=== PATIENT | male | born 1990 | race African-American/Black ===

== ENCOUNTER 2017-06-28 22:55 | Emergency (ER) | payer BC ==
[2017-06-28 23:15] VITALS: BP 147/94
[2017-06-28] MEDS ORDERED: LIDOCAINE 1% / SOD BICARB 8.4% 20 ML VIAL. IJ ONE (23:55)
--- NOTE | 2017-06-29 00:27 | PHYS DOC ---
Past Medical History Past Medical History: Asthma, Hypertension Past Surgical History: No Surgical History Alcohol Use: None Drug Use: None Adult General Chief Complaint Chief Complaint: LACERATION/AVULSION HPI HPI Patient is a 27 year old male who presents with right cheek laceration. Patient states he was mowing his lawn when a piece of nail flew and cut him on the right cheek. Patient states his tetanus is up-to-date Review of Systems Review of Systems Constitutional: Denies fever or chills [] Eyes: Denies change in visual acuity, redness, or eye pain [] HENT: Denies nasal congestion or sore throat [] Respiratory: Denies cough or shortness of breath [] Cardiovascular: No additional information not addressed in HPI [] GI: Denies abdominal pain, nausea, vomiting, bloody stools or diarrhea [] : Denies dysuria or hematuria [] Musculoskeletal: Denies back pain or joint pain [] Integument: right cheek laceration Neurologic: Denies headache, focal weakness or sensory changes [] Endocrine: Denies polyuria or polydipsia [] Current Medications Current Medications Current Medications Medications (Trade) Dose Ordered Sig/Dae Start Time Stop Time Status Last Admin Dose Admin Lidocaine/Sodium Bicarbonate (Buffered Lidocaine 1%) 20 ml 1X ONCE 06/28/17 23:55 06/28/17 23:56 DC 06/28/17 23:55 20 ML Allergies Allergies Allergies Coded Allergies Type Severity Reaction Last Updated Verified No Known Drug Allergies 06/28/17 No Physical Exam Physical Exam Constitutional: Well developed, well nourished, no acute distress, non-toxic appearance. [] HENT: Normocephalic, atraumatic, bilateral external ears normal, oropharynx moist, no oral exudates, nose normal. [] Eyes: PERRLA, EOMI, conjunctiva normal, no discharge. [] Neck: Normal range of motion, no tenderness, supple, no stridor. [] Cardiovascular:Heart rate regular rhythm, no murmur [] Lungs & Thorax: Bilateral breath sounds clear to auscultation [] Abdomen: Bowel sounds normal, soft, no tenderness, no masses, no pulsatile masses. [] Skin: Right cheek with a laceration approximately 2 cm long. Laceration is not cutting through. Back: No tenderness, no CVA tenderness. [] Extremities: No tenderness, no cyanosis, no clubbing, ROM intact, no edema. [] Neurologic: Alert and oriented X 3, normal motor function, normal sensory function, no focal deficits noted. [] Psychologic: Affect normal, judgement normal, mood normal. [] Current Patient Data Vital Signs Vital Signs Date Time Temp Pulse Resp B/P (MAP) Pulse Ox O2 Delivery O2 Flow Rate FiO2 06/28/17 23:15 97.9 78 17 98 Room Air 97.9 EKG EKG [] Radiology/Procedures Radiology/Procedures Indication: Right cheek laceration Procedure: The patient was placed in the appropriate position and anesthesia around the laceration was 1% buffered lidocaine, the laceration was explored for foreign objects, none was found. The laceration was cleaned with 20 ml of normal saline and Betadine. The laceration was closed with 5 interrupted sutures using 6. 0 Prolene and left open to air. Course & Med Decision Making Course & Med Decision Making Pertinent Labs and Imaging studies reviewed. (See chart for details) Patient has right cheek laceration that was closed as noted in procedures. Provided wound care instructions as well as return precautions. Follow-up with the ED in 5 days for suture removal. Tetanus is up to date Dragon Disclaimer Dragon Disclaimer This electronic medical record was generated, in whole or in part, using a voice recognition dictation system. Departure Departure Impression: Primary Impression: Cheek laceration Disposition: 01 HOME, SELF-CARE Condition: STABLE Referrals: NO PCP (PCP) Follow-up with the ED with the primary care doctor in 5 days. Suture removal Patient Instructions: Facial Laceration Additional Instructions: You were seen with a laceration on the right cheek. Keep the area clean and dry. Apply Neosporin to the area twice a day. Monitor it for signs and symptoms of infection including but not limited to increased redness warmth or odorous/ yellow drainage from the area return to the ED if they occur. Follow-up with the PCP or the emergency room in 5 days for suture removal Problem Qualifiers Primary Impression: Cheek laceration Encounter type: initial encounter Laterality: right Qualified Codes: S01.411A - Laceration without foreign body of right cheek and temporomandibular area, initial encounter JOVITA WHITE APRN Jun 29, 2017 00:27
== END 2017-06-29 00:57 | disposition home or self-care (01) ==
LOC: ER 22:55
DX: S01.411A Laceration without foreign body of right cheek and temporomandibular area, initial encounter (principal); I10 Essential (primary) hypertension; J45.909 Unspecified asthma, uncomplicated; W26.8XXA Contact with other sharp object(s), not elsewhere classified, initial encounter; Y93.89 Activity, other specified; Y92.89 Other specified places as the place of occurrence of the external cause; Y99.8 Other external cause status
CPT/HCPCS: 12011; 99283-25

== ENCOUNTER 2017-07-06 10:13 | Emergency (ER) | payer BC ==
[~2017-07-06] VITALS: Ht 177.8 cm; Wt 90.7 kg
[2017-07-06 10:30] VITALS: BP 150/95
--- NOTE | 2017-07-06 10:53 | PHYS DOC ---
Past Medical History Past Medical History: Asthma, Hypertension Past Surgical History: No Surgical History Alcohol Use: None Drug Use: None Adult General Chief Complaint Chief Complaint: SUTURE/STAPLE REMOVAL HPI HPI Patient is a pleasant 27-year-old male who sustained a laceration to the right cheek 7 days ago. He was mowing the lawn when he struck in the face by a nail came out of the mower. He had the wound cleaned and dressed and it closed here in our emergency department with polypropylene. Review of Systems Review of Systems Constitutional: Denies fever or chills [][] Integument: Denies rash or skin lesions [] Neurologic: Denies headache, Allergies Allergies Allergies Coded Allergies Type Severity Reaction Last Updated Verified No Known Drug Allergies 06/28/17 No Physical Exam Physical Exam Vital signs reviewed. Constitutional: Well developed, well nourished, no acute distress, non-toxic appearance. [] Skin: Warm, dry, no erythema, no rash. Impression's has a well-healed small 1.5 summary laceration to the right cheek. [address] Neurologic: Alert and oriented X 3, Psychologic: Affect normal, judgement normal, mood normal. [] EKG EKG [] Radiology/Procedures Radiology/Procedures [] Course & Med Decision Making Course & Med Decision Making Pertinent Labs and Imaging studies reviewed. (See chart for details) 5. 0 Prolene sutures removed without issue. Patient given wound precautions and will follow-up with his private doctor. [] Dragon Disclaimer Dragon Disclaimer This electronic medical record was generated, in whole or in part, using a voice recognition dictation system. Departure Departure Impression: Primary Impression: Cheek laceration Additional Impression: Visit for suture removal Disposition: 01 HOME, SELF-CARE Condition: IMPROVED Referrals: NO PCP (PCP) Patient Instructions: Suture Removal Additional Instructions: Please return for any new or increasing symptoms. Signs of infection or if you have any questions or concerns. Problem Qualifiers MARIBETH BENZ MD Jul 06, 2017 10:53
== END 2017-07-06 11:03 | disposition home or self-care (01) ==
LOC: ER 10:13
DX: S01.411D Laceration without foreign body of right cheek and temporomandibular area, subsequent encounter (principal); J45.909 Unspecified asthma, uncomplicated; I10 Essential (primary) hypertension; X58.XXXD Exposure to other specified factors, subsequent encounter; Y99.8 Other external cause status; Y92.89 Other specified places as the place of occurrence of the external cause
CPT/HCPCS: 99281